=== PATIENT | male | born 2000 | race African-American/Black ===

== ENCOUNTER 2021-12-09 09:01 | Emergency (ER) | payer MEDICAID ==
[~2021-12-09] VITALS: Ht 188 cm; Wt 86.2 kg
--- NOTE | 2021-12-09 09:01 | NUR ---
ARRIVAL PATIENT ARRIVED TO ED6 AMBULATORY, C/O RIGHT LOWER DENTAL PAIN FOR THE PAST 2 DAYS, HAS BEEN USING [facility] WITH MINIMAL RESULTS, CAME TO THE ED FOR EVAL, DOCTOR TO THE ROOM TO SEE PATIENT.
[2021-12-09 09:15] VITALS: BP 145/95
--- NOTE | 2021-12-09 09:23 | ER.PDOC ---
General Chief Complaint: Toothache Stated Complaint: TOOTHACHE Time seen by MD: 09:20 Source: patient Exam Limitations: no limitations History of Present Illness Initial Comments Toothache for 2 days. No fever or chills. Timing/Duration: gradual Associated Symptoms: toothache, jaw pain (R) Severity: moderate Past Medical History Medical History: no pertinent history Surgical History: no surgical history Family History Significant Family History: no pertinent family hx Social History Smoking: non-smoker Alcohol Use: none Drug Use: none Constitutional: no symptoms reported Nose: no symptoms reported Throat: no symptoms reported Respiratory: no symptoms reported Cardiovascular: no symptoms reported Gastrointestinal: no symptoms reported All Other Systems: Reviewed and Negative Physical Exam General Appearance: alert, no distress Head/Neck: head nml inspection, neck nml inspection, trachea midline, no lymphadenopathy, thyroid nml Mouth: dental tenderness (right last molar) Throat: pharynx nml, voice nml, no airway problems Ears/Nose: nml inspection Respiratory: no resp. distress, lungs clear CVS: reg. rate & rhythm, heart sounds nml Abdomen: non-tender, no organomegaly Extremities: non-tender, ROM nml Skin Exam: Normal Color, Warm/Dry NEURO/PSYCH: oriented X3, mood/effect nml Results/Orders Results/Orders Vital Signs Date Time Temp Pulse Resp B/P (MAP) Pulse Ox O2 Delivery O2 Flow Rate FiO2 12/09/21 09:15 98.0 54 18 98 12/09/21 09:15 98.0 54 18 145/95 (112) 98 Room Air 12/09/21 09:15 98.0 54 18 ER DEPART Departure Time of Disposition: 09:21 Disposition: 01 HOME / SELF CARE / HOMELESS Impression: Primary Impression: Pain, dental Condition: Stable Referrals: PCP,UNKNOWN (PCP) PRIMARY CARE PROVIDER Additional Instructions: Amoxil Ibuprofen Tramadol Follow-up with your dentist this week, call for appointment Return to ED if worse or concerns Duration or Time Spent with Pa: 10 min PAGE ORLANDO MD Dec 09, 2021 09:22
== END 2021-12-09 09:29 | disposition home or self-care (01) ==
LOC: ER 09:01
DX: K08.89 Other specified disorders of teeth and supporting structures (principal)
CPT/HCPCS: 99283